=== PATIENT | female | born 1990 | race Caucasian/White ===

== ENCOUNTER 2017-01-07 14:20 | Emergency (ER) | payer OTHER ==
[2017-01-07 14:36] VITALS: RESP 18
[2017-01-07] MEDS ORDERED: NS 1,000 ML IV ONE (15:13)
--- NOTE | 2017-01-07 15:14 | EDPHY ---
H & P Stated Complaint: Bright red blood in stool, mid lower abdo pain. Time Seen by Provider: 01/07/17 15:00 HPI/ROS: CHIEF COMPLAINT: Blood and mucus in stool HISTORY OF PRESENT ILLNESS: The patient presents to the ED with 3 days of blood and mucus in her stool. The patient has a history of multiple GI issues including gastroparesis, internal/external hemorrhoids, ulcers and irritable bowel syndrome. The patient has been under the care of cushion filler in the past and has had a fairly significant workup. The patient reports that she is currently taking Zofran, ranitidine and Synthroid. The patient denies any hematemesis. The patient complains of generalized mild abdominal pain. The patient denies fever, cough or congestion. The patient denies associated dysuria. REVIEW OF SYSTEMS: A comprehensive 10 point review of systems is otherwise negative aside from elements mentioned in the history of present illness. Source: Patient Exam Limitations: No limitations - Personal History LMP (Females 10-55): Now Current Tetanus/Diphtheria Vaccine: Unsure Current Tetanus Diphtheria and Acellular Pertussis (TDAP): Unsure - Medical/Surgical History Hx Asthma: No Hx Chronic Respiratory Disease: No Hx Diabetes: No Hx Cardiac Disease: No Hx Renal Disease: No Hx Cirrhosis: No Hx Alcoholism: No Hx HIV/AIDS: No Other PMH: polyps, gastric ulcers, gastroparesis, choleycystectomy, constipation , IBS, hypothyroid, anemia-unknown eitolgy, fibromyalgia. - Social History Smoking Status: Former smoker - Physical Exam Exam: General Appearance: Alert, no distress Eyes: Pupils equal and round no pallor or injection ENT, Mouth: Mucous membranes moist Respiratory: There are no retractions, lungs are clear to auscultation Cardiovascular: Regular rate and rhythm Gastrointestinal: Minimal epigastric tenderness, no peritoneal signs, normal bowel sounds Neurological: A&O, normal motor function, normal sensory exam, normal cranial nerves Skin: Warm and dry, no rashes Musculoskeletal: Neck is supple nontender Extremities: symmetrical, full range of motion Constitutional: Initial Vital Signs Temperature (C) 36.9 C 01/07/17 14:32 Heart Rate 79 01/07/17 14:32 Respiratory Rate 18 01/07/17 14:32 Blood Pressure 134/88 H 01/07/17 14:32 O2 Sat (%) 97 01/07/17 14:32 O2 Delivery Mode Room Air Allergies/Adverse Reactions: promethazine [From Phenergan] Allergy (Intermediate, Verified 01/07/17 14:37) Other-Enter Comments Home Medications: Medication Instructions Recorded Nature Thyroid 01/07/17 Tizanidine HCl 01/07/17 Zofran 01/07/17 Medical Decision Making ED Course/Re-evaluation: The patient presents to the ED with scant mucoid and bloody bowel movements. Patient has a history of multiple chronic GI problems. I find the patient's abdominal examination to be entirely benign. The patient is scheduled to see a cushion filler this Friday in follow-up. I did review the patient's laboratory testing with her. At this point time I doubt she has an acute surgical abdomen which requires emergent imaging. Additionally the patient has no fever or white count. I do feel given her history of multiple GI illnesses that she can pursue additional follow up with Gastroenterology as scheduled this Friday. Differential Diagnosis: Differential diagnosis considered includes peptic ulcer disease, ulcerative colitis, inflammatory bowel disease, irritable bowel syndrome - Data Points Laboratory Results: Laboratory Results 01/07/17 15:40 01/07/17 15:40 01/07/17 01/07/17 01/07/17 15:40 15:40 15:40 WBC 9.31 10^3/uL 10^3/uL (3.80-9.50) RBC 4.65 10^6/uL 10^6/uL (4.18-5.33) Hgb 13.3 g/dL g/dL (12.6-16.3) Hct 39.4 % % (38.0-47.0) MCV 84.7 fL fL (81.5-99.8) MCH 28.6 pg pg (27.9-34.1) MCHC 33.8 g/dL g/dL (32.4-36.7) RDW 12.6 % % (11.5-15.2) Plt Count 380 10^3/uL 10^3/uL (150-400) MPV 8.5 fL L fL (8.7-11.7) Neut % (Auto) 78.4 % H % (39.3-74.2) Lymph % (Auto) 16.6 % % (15.0-45.0) [place] % (Auto) 4.3 % L % (4.5-13.0) Eos % (Auto) 0.0 % L % (0.6-7.6) Baso % (Auto) 0.5 % % (0.3-1.7) Nucleat RBC Rel Count 0.0 % % (0.0-0.2) Absolute Neuts (auto) 7.29 10^3/uL H 10^3/uL (1.70-6.50) Absolute Lymphs (auto) 1.55 10^3/uL 10^3/uL (1.00-3.00) Absolute Monos (auto) 0.40 10^3/uL 10^3/uL (0.30-0.80) Absolute Eos (auto) 0.00 10^3/uL L 10^3/uL (0.03-0.40) Absolute Basos (auto) 0.05 10^3/uL 10^3/uL (0.02-0.10) Absolute Nucleated RBC 0.00 10^3/uL 10^3/uL (0-0.01) Immature Gran % 0.2 % % (0.0-1.1) Immature Gran # 0.02 10^3/uL 10^3/uL (0.00-0.10) Sodium 137 mEq/L mEq/L (134-144) Potassium 3.9 mEq/L mEq/L (3.5-5.2) Chloride 105 mEq/L mEq/L (97-110) Carbon Dioxide 22 mEq/l mEq/l (22-31) Anion Gap 10 mEq/L mEq/L (8-16) BUN 12 mg/dL mg/dL (7-23) Creatinine 0.5 mg/dL L mg/dL (0.6-1.0) Estimated GFR > 60 Glucose 95 mg/dL mg/dL (70-100) Calcium 9.7 mg/dL mg/dL (8.5-10.4) Beta HCG, Qual NEGATIVE Medications Given: Discontinued Medications Sodium Chloride (Ns) 1,000 mls @ 0 mls/hr IV ONCE ONE PRN Reason: Wide Open Stop: 01/07/17 15:14 Last Admin: 01/07/17 15:30 Dose: 1,000 mls Departure - Departure Disposition: Home, Routine, Self-Care Clinical Impression: Hematochezia Condition: Good Instructions: Rectal Bleeding (ED) Additional Instructions: 1. Please follow up as scheduled with Gastroenterology of the [facility] on Friday. 2. Please return to the ED for heavy bleeding, severe pain, fever or other concerns.
[2017-01-07 15:49] LABS: % IMMATURE GRANULYOCYTES 0.2 % (0.0-1.1); ABSOLUTE IMMATURE GRANULOCYTES 0.02 10^3/uL (0.00-0.10); ADD DIFF? NO; ADD MORPH? NO; ADD SCAN? NO; ATYPICAL LYMPHOCYTE FLAG 0 (0-99); FRAGMENT RBC FLAG 0 (0-99); HEMATOCRIT 39.4 % (38.0-47.0); HEMOGLOBIN 13.3 g/dL (12.6-16.3); LEFT SHIFT FLG 0 (0-99); LIPEMIA HEMOLYSIS FLAG 90 (0-99); MEAN CELL HEMOGLOBIN 28.6 pg (27.9-34.1); MEAN CELL HEMOGLOBIN CONCENTR. 33.8 g/dL (32.4-36.7); MEAN CELL VOLUME 84.7 fL (81.5-99.8); MEAN PLATELET VOLUME 8.5 fL (8.7-11.7); PLATELET CLUMPS FLAG 0 (0-99); PLATELET COUNT 380 10^3/uL (150-400); RED BLOOD CELL COUNT 4.65 10^6/uL (4.18-5.33); RED CELL DISTRIBUTION WIDTH 12.6 % (11.5-15.2)
[2017-01-07 16:00] LABS: ANION GAP 10 mEq/L (8-16); CALCIUM 9.7 mg/dL (8.5-10.4); CARBON DIOXIDE 22 mEq/l (22-31); CHLORIDE 105 mEq/L (97-110); CREATININE 0.5 mg/dL (0.6-1.0); GLOMERULAR FILTRATION RATE > 60; GLUCOSE 95 mg/dL (70-100); POTASSIUM 3.9 mEq/L (3.5-5.2); SODIUM 137 mEq/L (134-144)
[2017-01-07 16:57] VITALS: BP 116/86; PULSE 63; TEMP 98.6; O2SAT 96
== END 2017-01-07 16:58 | disposition home or self-care (01) ==
DX: K92.1 Melena (principal); Z87.891 Personal history of nicotine dependence; Z90.49 Acquired absence of other specified parts of digestive tract

== ENCOUNTER 2017-10-21 19:46 | Emergency (ER) | payer OTHER ==
[2017-10-21 19:51] VITALS: RESP 18; TEMP 99.7
[2017-10-21] MEDS ORDERED: ONDANSETRON 4 MG/2 ML VIAL IVP ONE ×2 (20:44→21:50)
[2017-10-21] MEDS ORDERED: NS 1,000 ML IV ONE ×2 (20:44→21:50)
[2017-10-21 21:51] LABS: PLATELET COUNT 372 10^3/uL (150-400)
[2017-10-21] MEDS ORDERED: IOPAMIDOL (ISOVUE-300) 100 ML BTL ONE (22:04)
[2017-10-21 22:23] VITALS: O2SAT 97
[2017-10-21] MEDS ORDERED: METOCLOPRAMIDE 10 MG/2 ML VIAL IVP ONE (23:11)
--- NOTE | 2017-10-21 23:32 | EDPHY ---
H & P Stated Complaint: left side cramping abd pain with V/D HPI/ROS: Chief complaint: Abdominal pain with diarrhea, nausea and vomiting History of present illness: This is a 26 year old female who presents to the emergency department for evaluation of abdominal pain with associated diarrhea as well as nausea and vomiting. She reports this morning she developed abdominal pain. She describes cramping in the left lower aspect of the abdomen. She has subsequently developed diarrhea. No report of bright red blood or melena. She subsequently developed nausea and vomiting. She has been unable to tolerate oral intake. Symptoms have been persistent. She does report multiple sick contacts with the same symptoms in her office. No report of foreign travel or antibiotic use. Review of systems: A 10 point review of systems was obtained and other than described above was negative - Personal History LMP (Females 10-55): Over 28 Days Ago Current Tetanus/Diphtheria Vaccine: Yes Current Tetanus Diphtheria and Acellular Pertussis (TDAP): Yes - Medical/Surgical History Hx Asthma: No Hx Chronic Respiratory Disease: No Hx Diabetes: No Hx Cardiac Disease: No Hx Renal Disease: No Hx Cirrhosis: No Hx Alcoholism: No Hx HIV/AIDS: No Other PMH: polyps, gastric ulcers, gastroparesis, choleycystectomy, constipation , IBS, hypothyroid, anemia-unknown eitolgy, fibromyalgia. - Social History Smoking Status: Current some day smoker - Physical Exam Exam: General Appearance: Alert, nontoxic. Eyes: Pupils equal and round no pallor or injection. ENT, Mouth: Mucous membranes moist. Respiratory: There are no retractions, lungs are clear to auscultation. Cardiovascular: Regular rate and rhythm. Gastrointestinal: Bowel sounds normal. Abdomen is soft and nondistended. Mild discomfort on palpation of the left lower quadrant. No peritoneal signs. Neurological: Alert and oriented x4. Strength and sensation intact and symmetrical. Skin: Warm and dry, no rashes. Musculoskeletal: Neck is supple non tender. Extremities are symmetrical, full range of motion. Psychiatric: Patient is oriented X 3, there is no agitation. Constitutional: Initial Vital Signs Temperature (C) 37.6 C 10/21/17 19:48 Heart Rate 125 H 10/21/17 19:48 Respiratory Rate 18 10/21/17 19:48 Blood Pressure 116/76 10/21/17 19:48 O2 Sat (%) 95 10/21/17 19:48 O2 Delivery Mode Room Air Allergies/Adverse Reactions: promethazine [From Phenergan] Allergy (Intermediate, Verified 10/21/17 19:51) Other-Enter Comments Home Medications: Medication Instructions Recorded Nature Thyroid 01/07/17 Ondansetron Odt [Zofran Odt 4 mg 4 mg PO Q4 #6 tab 10/21/17 (*)] Medical Decision Making - Diagnostics Imaging: Discussed imaging studies w/ freight caller Radiologist ED Course/Re-evaluation: Patient is seen under the supervision of my secondary supervising physician Dr. Robles Mcclelland. Patient presents to the emergency department for abdominal pain with nausea, vomiting and diarrhea. She is nontoxic. Vital signs are stable. Blood studies largely unremarkable. CT scan largely unremarkable. She has been symptomatically treated and reports improvement in symptoms. Tolerating oral challenges. She is comfortable being discharged home. Home care is discussed. Return precautions are given. Patient voiced understanding and agreement with plan. Differential Diagnosis: Included but not limited to gastroenteritis, gastritis, biliary tract disease, pancreatitis, colitis, diverticulitis - Data Points Laboratory Results: Laboratory Results 10/21/17 20:43 10/21/17 20:43 Medications Given: Discontinued Medications Sodium Chloride (Ns) 1,000 mls @ 0 mls/hr IV ONCE ONE PRN Reason: Wide Open Stop: 10/21/17 20:45 Last Admin: 10/21/17 20:47 Dose: 1,000 mls Sodium Chloride (Ns) 1,000 mls @ 0 mls/hr IV ONCE ONE PRN Reason: Wide Open Stop: 10/21/17 21:51 Last Admin: 10/21/17 21:53 Dose: 1,000 mls Ketorolac Tromethamine (Toradol) 15 mg IVP EDNOW ONE Stop: 10/21/17 23:44 Last Admin: 10/21/17 23:52 Dose: 15 mg Metoclopramide HCl (Reglan Injection) 10 mg IVP EDNOW ONE Stop: 10/21/17 23:12 Last Admin: 10/21/17 23:40 Dose: 10 mg Ondansetron HCl (Zofran) 4 mg IVP EDNOW ONE Stop: 10/21/17 20:45 Last Admin: 10/21/17 20:47 Dose: 4 mg Ondansetron HCl (Zofran) 4 mg IVP EDNOW ONE Stop: 10/21/17 21:51 Last Admin: 10/21/17 21:53 Dose: 4 mg Ondansetron HCl (Zofran Odt 4 Mg Prepack#2) 1 btl TAKEHOME EDNOW ONE Stop: 10/21/17 23:34 Last Admin: 10/21/17 23:52 Dose: 1 btl Departure - Departure Disposition: Home, Routine, Self-Care Clinical Impression: Vomiting and diarrhea Abdominal pain Qualifiers: Abdominal location: left lower quadrant Qualified Code(s): R10.32 - Left lower quadrant pain Condition: Good Instructions: Acute Nausea and Vomiting (ED), Acute Diarrhea (ED), Acute Abdominal Pain (ED) Additional Instructions: Follow-up with your primary care doctor in 1-2 days for recheck If symptoms worsen or new symptoms develop return to the emergency room for recheck Referrals: NONE *PRIMARY CARE P,. [Primary Care Provider] - As per Instructions Mesfin Garland DO [Doctor of Osteopathy] - As per Instructions [facility],. [Clinic] - As per Instructions Prescriptions: Ondansetron Odt [Zofran Odt 4 mg (*)] 4 mg PO Q4 #6 tab
[2017-10-21] MEDS ORDERED: ONDANSETRON 4MG PREPACK#2 BTL TAKEHOME ONE (23:33)
[2017-10-21] MEDS ORDERED: KETOROLAC 15 MG/1 ML SDV IVP ONE (23:43)
[2017-10-22 00:40] VITALS: BP 119/72; PULSE 87
== END 2017-10-22 00:40 | disposition home or self-care (01) ==
DX: R10.32 Left lower quadrant pain (principal); R11.10 Vomiting, unspecified; R19.7 Diarrhea, unspecified; F17.200 Nicotine dependence, unspecified, uncomplicated; Z90.49 Acquired absence of other specified parts of digestive tract
CPT/HCPCS: 96374; J1885; J2405; Q9967

== ENCOUNTER → 2017-12-21 | Outpatient (CLI) | payer OTHER | LOC: GIMAGING 18:42 | PROVIDERS: ATTEND Nurse Practitioner Family | DX: M79.675 Pain in left toe(s) (principal) | CPT/HCPCS: 73630-PO ==

== ENCOUNTER 2019-01-01 15:42 | Emergency (ER) | payer OTHER ==
--- NOTE | 2019-01-01 15:56 | EDPHY ---
H & P Stated Complaint: nontraumatic left hip pain x 5 weeks, sent by PCP , seen at [facility] in [place]. Time Seen by Provider: 01/01/19 15:46 - Personal History LMP (Females 10-55): 8-14 Days Ago Current Tetanus Diphtheria and Acellular Pertussis (TDAP): Yes - Medical/Surgical History Hx Asthma: No Hx Chronic Respiratory Disease: No Hx Diabetes: No Hx Cardiac Disease: No Hx Renal Disease: No Hx Cirrhosis: No Hx Alcoholism: No Hx HIV/AIDS: No Other PMH: polyps, gastric ulcers, gastroparesis, choleycystectomy, constipation , IBS, hypothyroid, anemia-unknown eitolgy, fibromyalgia. - Social History Smoking Status: Current some day smoker Constitutional: Initial Vital Signs Temperature (C) 37.1 C 01/01/19 15:46 Heart Rate 84 01/01/19 15:46 Respiratory Rate 16 01/01/19 15:46 Blood Pressure 117/68 01/01/19 15:46 O2 Sat (%) 92 01/01/19 15:46 O2 Delivery Mode Room Air Allergies/Adverse Reactions: promethazine [From Phenergan] Allergy (Intermediate, Verified 10/21/17 19:51) Other-Enter Comments Home Medications: Medication Instructions Recorded Nature Thyroid 01/07/17 Ondansetron Odt [Zofran Odt 4 mg 4 mg PO Q4 #6 tab 10/21/17 (*)] Ibuprofen [Motrin] 800 mg PO Q8 #20 tab 01/01/19 Naproxen 01/01/19 oxyCODONE IR [Oxycodone Ir (*)] 5 - 10 mg PO Q6 PRN #30 tab 01/01/19 Medical Decision Making - Diagnostics Imaging Results: Imaging Impressions Abdomen Ultrasound 01/01/19 16:02 Impression: No hernia identified. Findings discussed with alda Gill for Marcus Burns MD 01/01/2019 at 17: 12. Abdomen CT 01/01/19 17:15 Impression: 1. Abnormal enlargement and septation of the right ovary. Recommend ultrasound evaluation for further characterization as clinically appropriate. 2. Otherwise negative CT examination of the abdomen and pelvis. No etiology for left flank or hip pain identified. Results called to Dr. Burns at 5:55 PM. Lower Extremity MRI 01/01/19 17:53 Impression: 1. Unremarkable MRI examination of left hip and pelvis. Results called to Dr. Burns at 8:30 PM. Lumbar Spine MRI 01/01/19 18:03 Impression: 1. Normal MRI examination of the lumbar spine without contrast. No evidence of disk herniation or neural impingement.. Imaging: Discussed imaging studies w/ call or contact centre team leader Radiologist, I viewed and interpreted images myself ED Course/Re-evaluation: CHIEF COMPLAINT: Left groin/hip pain HISTORY OF PRESENT ILLNESS: The patient is a 28 y/o female with a history of fibromyalgia, IBS, and gastroparesis complaining of left groin/hip pain. The patient developed this pain while on vacation in [place], and presented to the emergency department. She had a pelvic US performed without any significant findings. After returning home from [place], her symptoms worsened and she saw her PCP, Dr. Scott, who sent her to this emergency department. She states "I feel like a bus hit me and I feel worn out". She reports that lifting her left leg or doing stairs exacerbates her symptoms. In addition to her left groin pain she has low back pain, is nauseated and dizzy, and has specks in her vision. She reports the low back pain occurred prior to the onset of her groin pain. She denies any traumatic event. No fever, body aches, lightheadedness, chest pain, heart palpitations, shortness of breath, cough, abdominal pain, urinary or bowel complaints, numbness. REVIEW OF SYSTEMS: A comprehensive 10 system review of systems is otherwise negative aside from elements mentioned in the history of present illness and medical decision making. PHYSICAL EXAM: HR, BP, O2 Sat, RR. Temp noted General Appearance: Alert, well hydrated, appropriate, and non-toxic appearing. Head: Atraumatic without scalp tenderness or obvious injury Eyes: Pupils equal, round, reactive to light and accommodation, EOMI, no trauma , no injection. Ears: Clear bilaterally, no perforation, normal landmarks Nose: Atraumatic, no rhinorrhea, clear. Throat: There is no erythema or exudates, no lesions, normal tonsils, mucus membranes moist. Neck: Supple, 2+ carotid upstroke, nontender, no lymphadenopathy. Respiratory: No retractions, no distress, no wheezes, and no accessory muscle use. Lungs are clear to auscultation bilaterally. Cardiovascular: Regular rate and rhythm, no murmurs, rubs, or gallops. Bilateral carotid, radial, dorsalis pedis, and posterior tibial pulses intact. Good capillary refill all extremities. Gastrointestinal: Abdomen is soft, nontender, non-distended, no masses, no rebound, no guarding, no peritoneal signs. Genitourinary: Left inguinal/femoral canal tenderness to palpation. Musculoskeletal: Normal active ROM of all extremities, atraumatic. Neurological: Alert, appropriate, and interactive. The patient has normal DTRs and non-focal cranial nerves, motor, sensory, and cerebellar exam. Skin: No rashes, good turgor, no nodules on palpation. Past medical history: Gastric ulcers, gastroparesis, constipation, IBS, hypothyroid, anemia-unknown eitolgy, fibromyalgia. Past surgical history: Cholecystectomy Family history: Social history: at bedside, lives in [place], employed DIAGNOSTICS/PROCEDURES/CRITICAL CARE TIME: Left inguinal canal US: No hernia or acute findings. Abdominopelvic CT: No acute findings. Abnormal right ovary which will need follow up. Left hip MRI: No acute findings. Lumbar spine MRI: No acute findings. DIFFERENTIAL DIAGNOSIS: The differential diagnosis for the patient's abdominal pain included but was not limited to ovarian cyst, pelvic inflammatory disease, ovarian torsion, urinary tract infection, ectopic , cholecystitis, and appendicitis. MEDICAL DECISION MAKING: The patient is a 28 y/o female with a history of fibromyalgia, IBS, and gastroparesis complaining of left groin/hip pain. She had a pelvic US performed without any significant findings and saw her PCP, Dr. Scott, who sent her to this emergency department. She states "I feel like a bus hit me and I feel worn out". Lifting her left leg or doing stairs exacerbates her symptoms. On exam she has left inguinal/femoral canal tenderness to palpation consistent with a hernia. I do not suspect that this patient has an intrinsic hip. Inguinal US and labs ordered. 1713: I spoke with the radiologist regarding patient's US. There is no US or acute findings visualized. Abdominopelvic CT ordered to further investigate. 1729: Reassessed patient and discussed imaging and laboratory findings. She is still having pain, 2 tab PO Vicodin administered. I have discussed plan for abdominopelvic CT, which she is comfortable with. 1753: I spoke with Dr. Cai, radiologist, who reports there are not acute findings on the patient's abdominopelvic CT. The patient does have an abnormal right ovary which will need follow up. Patient will need an MRI of her left hip and lumbar spine without contrast as she is unable to bear weight on her left hip. I ordered the lumbar spine and hip to rule out radiculopathy causing left hip pain verses intrinsic hip problem. 1800: Reassessed patient and discussed CT findings. I have also discussed plan for MRI, which she is comfortable with. 2024: I spoke with the radiologist, there are no acute findings on the lumbar spine MRI; left hip MRI still pending. 2031: I spoke with Dr. Cai, radiologist, there are no acute findings on the left hip MRI. 2039: Reassessed patient and discussed imaging findings. I have advised her to follow up with her PCP. I have prescribed her OxyIR and Motrin for her pain. Return precautions provided; patient is comfortable with this plan. 2129: Patient's UA is unremarkable, she is safe to be discharged home. - Data Points Laboratory Results: 01/01/19 01/01/19 01/01/19 21:14 16:50 16:48 POC Hgb 13.9 gm/dL gm/dL (12.6-16.3) POC Hct 41 % % (38-47) POC Sodium 142 mEq/L mEq/L (135-145) POC Potassium 3.7 mEq/L mEq/L (3.3-5.0) POC Chloride 106 mEq/L mEq/L (97-110) POC Total CO2 21 mEq/L L mEq/L (22-31) POC BUN 13 mg/dL mg/dL (7-23) POC Creatinine 0.7 mg/dL mg/dL (0.6-1.0) POC Glucose 88 mg/dL mg/dL (70-100) Beta HCG, Qual NEGATIVE Urine Color YELLOW Urine Appearance CLEAR Urine pH 5.0 (5.0-7.5) Ur Specific [place] > 1.060 H (1.002-1.030) Urine Protein NEGATIVE (NEGATIVE) Urine Ketones NEGATIVE (NEGATIVE) Urine Blood NEGATIVE (NEGATIVE) Urine Nitrate NEGATIVE (NEGATIVE) Urine Bilirubin NEGATIVE (NEGATIVE) Urine Urobilinogen NEGATIVE EU EU (0.2-1.0) Ur Leukocyte Esterase NEGATIVE (NEGATIVE) Urine RBC 1-3 /hpf /hpf (0-3) Urine WBC 1-3 /hpf /hpf (0-3) Ur Epithelial Cells TRACE /lpf /lpf (NONE-1+) Urine Mucus TRACE /lpf /lpf (NONE-1+) Urine Glucose NEGATIVE (NEGATIVE) Medications Given: Discontinued Medications Hydrocodone Bitart/Acetaminophen ([place] 10/325) 1 tab PO EDNOW ONE Stop: 01/01/19 17:06 Last Admin: 01/01/19 17:10 Dose: Not Given Hydrocodone Bitart/Acetaminophen ([place] 5/325) 2 tab PO EDNOW ONE Stop: 01/01/19 17:11 Last Admin: 01/01/19 17:12 Dose: 2 tab Oxycodone/Acetaminophen (Percocet 5/325mg Prepack#4) 1 btl TAKEHOME EDNOW ONE Stop: 01/01/19 20:54 Last Admin: 01/01/19 21:10 Dose: 1 btl Point of Care Test Results: Chemistry 01/01/19 16:50 POC Sodium 142 mEq/L mEq/L (135-145) POC Potassium 3.7 mEq/L mEq/L (3.3-5.0) POC Chloride 106 mEq/L mEq/L (97-110) POC Total CO2 21 mEq/L L mEq/L (22-31) POC BUN 13 mg/dL mg/dL (7-23) POC Creatinine 0.7 mg/dL mg/dL (0.6-1.0) POC Glucose 88 mg/dL mg/dL (70-100) ISTAT H&H 01/01/19 16:50 POC Hgb 13.9 gm/dL gm/dL (12.6-16.3) POC Hct 41 % % (38-47) Departure - Departure Disposition: Home, Routine, Self-Care Clinical Impression: Deep inguinal pain, left, Left hip pain Condition: Good Instructions: Oxycodone/Acetaminophen (By mouth), Hip Pain (ED) Additional Instructions: 1. Followup with your PCP within one week. 2. Return to the emergency apartment for fever, severe pain, inability to urinate or other concerns. 3. You have an abnormal right ovary which will need follow up. 4. Take OxyIR and Motrin as prescribed. Referrals: Elier Scott MD [Primary Care Provider] - As per Instructions Prescriptions: Ibuprofen [Motrin] 800 mg PO Q8 #20 tab oxyCODONE IR [Oxycodone Ir (*)] 5 - 10 mg PO Q6 PRN #30 tab PRN Reason: Pain, Severe Report Scribed for: Marcus Burns Report Scribed by: Bridget Herndon Date of Report: 01/01/19 Time of Report: 15:57
[2019-01-01] MEDS ORDERED: HYDROCODONE/APAP 10/325 TAB PO ONE (17:05)
[2019-01-01] MEDS ORDERED: HYDROCODONE/APAP 5/325 TAB ONE (17:09)
[2019-01-01] MEDS ORDERED: HYDROCODONE/APAP 5/325 TAB PO ONE (17:10)
[2019-01-01] MEDS ORDERED: IOPAMIDOL (ISOVUE-300) 100 ML BTL ONE (17:22)
[2019-01-01] MEDS ORDERED: OXYCODONE/APAP 5/325MG PREPACK#4 BTL TAKEHOME ONE (20:53)
[2019-01-01 21:39] VITALS: BP 120/70
== END 2019-01-01 21:39 | disposition home or self-care (01) ==
DX: M25.552 Pain in left hip (principal); M54.5 Low back pain; R11.0 Nausea
CPT/HCPCS: 82435-PO; 82565-PO; 82947-PO; 84132-PO; 84295-PO; 84520-PO; 85014-ER; Q9967

== ENCOUNTER 2019-01-26 14:29 | Emergency (ER) | payer BC, OTHER ==
[2019-01-26] MEDS ORDERED: ONDANSETRON 4 MG/2 ML VIAL IVP ONE (15:03)
--- NOTE | 2019-01-26 15:06 | EDPHY ---
H & P Stated Complaint: n/v/d, "extreme abdominal pain" points to general abd area Time Seen by Provider: 01/26/19 14:55 HPI/ROS: CHIEF COMPLAINT: Abdominal pain, vomiting HISTORY OF PRESENT ILLNESS: 28-year-old female s/p cholecystectomy presents with abdominal pain and vomiting. Onset of generalized abdominal pain this morning. The pain is moderate to severe and associated with multiple episodes of vomiting. Unable to tolerate oral fluids. The pain is alleviated temporarily after vomiting, then recurs. No fever and no diarrhea. Ongoing dysuria for 8 weeks, urinalysis reportedly negative. Taking a lot of ibuprofen an aspirin for other symptoms, concern for gastritis/PUD. History of PUD in the past, previously on Prilosec. REVIEW OF SYSTEMS: complete 10 point ROS reviewed and is negative except for the noted elements in the HPI Source: Patient - Personal History LMP (Females 10-55): 8-14 Days Ago Current Tetanus Diphtheria and Acellular Pertussis (TDAP): Yes - Medical/Surgical History Hx Asthma: No Hx Chronic Respiratory Disease: No Hx Diabetes: No Hx Cardiac Disease: No Hx Renal Disease: No Hx Cirrhosis: No Hx Alcoholism: No Hx HIV/AIDS: No Hx Splenectomy or Spleen Trauma: No Other PMH: polyps, gastric ulcers, gastroparesis, choleycystectomy, constipation , IBS, hypothyroid, anemia-unknown eitolgy, fibromyalgia. - Family History Significant Family History: No pertinent family hx - Social History Smoking Status: Current some day smoker Alcohol Use: Sober Drug Use: Marijuana - Physical Exam Exam: General Appearance: Alert, pleasant Eyes: Pupils equal and round, no conjunctival pallor ENT, Mouth: Mucous membranes moist Neck: Normal inspection Respiratory: Lungs are clear to auscultation Cardiovascular: Regular rate and rhythm Gastrointestinal: Abdomen is soft, epigastric tenderness Neurological: A&O, nonfocal, normal gait Skin: Warm and dry Extremities: Normal inspection Psychiatric: Mood and affect normal Constitutional: Initial Vital Signs Temperature (C) 36.9 C 01/26/19 14:34 Heart Rate 82 01/26/19 14:34 Respiratory Rate 16 01/26/19 14:34 Blood Pressure 138/115 H 01/26/19 14:34 O2 Sat (%) 100 01/26/19 14:34 O2 Delivery Mode Room Air Allergies/Adverse Reactions: promethazine [From Phenergan] Allergy (Intermediate, Verified 10/21/17 19:51) Other-Enter Comments Home Medications: Medication Instructions Recorded Nature Thyroid 01/07/17 Ondansetron Odt [Zofran Odt 4 mg 4 mg PO Q4 #6 tab 10/21/17 (*)] Ibuprofen [Motrin] 800 mg PO Q8 #20 tab 01/01/19 Naproxen 01/01/19 oxyCODONE IR [Oxycodone Ir (*)] 5 - 10 mg PO Q6 PRN #30 tab 01/01/19 Cephalexin [Keflex (*)] 500 mg PO BID #10 cap 01/26/19 Ondansetron Odt [Zofran Odt 4 mg 4 mg PO Q4 PRN #6 tab 01/26/19 (*)] Medical Decision Making - Diagnostics Imaging Results: Imaging Impressions Abdomen CT 01/26/19 16:23 Impression: There is no CT explanation for the patient's left upper quadrant pain. If there is further concern regarding evaluation of the stomach, either an upper GI series or directed endoscopy could be considered. Findings were discussed with GARRY MALDONADO MD at 17:19, on 01/26/2019. Imaging: Discussed imaging studies w/ clergy member Radiologist ED Course/Re-evaluation: Assessment: Abdominal pain and vomiting epigastric tenderness on exam. Consistent with peptic ulcer disease versus pancreatitis. IV normal saline 1 L , morphine and Zofran IV given. Will reassess. 16 20: Pain is worse, patient appears quite uncomfortable. Morphine 6 mg IV given. Exam reveals left upper quadrant tenderness, no peritoneal signs. CT scan of the abdomen pelvis ordered. Labs reviewed with the patient, urinalysis consistent with UTI, urine culture sent. Haldol 2.5 mg IV given. 1745: Feels much better, pain and nausea have resolved. Cyclic vomiting syndrome possibility vs PUD discussed with the patient. She is a daily marijuana user. Will give trial of ice chips, then reassess. Able to tolerate oral fluids well. Will discharge home. She will resume taking Prilosec and will follow up with GI. Differential Diagnosis: Differential diagnosis includes though it is not limited to appendicitis, cholecystitis, diverticulitis, pyelonephritis, bowel perforation, small bowel obstruction. - Data Points Laboratory Results: Laboratory Results 01/26/19 15:00 01/26/19 15:42 01/26/19 01/26/19 01/26/19 15:50 15:42 15:42 WBC RBC Hgb Hct MCV MCH MCHC RDW Plt Count MPV Neut % (Auto) Lymph % (Auto) [place] % (Auto) Eos % (Auto) Baso % (Auto) Nucleat RBC Rel Count Absolute Neuts (auto) Absolute Lymphs (auto) Absolute Monos (auto) Absolute Eos (auto) Absolute Basos (auto) Absolute Nucleated RBC Immature Gran % Immature Gran # Sodium 137 mEq/L mEq/L (135-145) Potassium 3.7 mEq/L mEq/L (3.5-5.2) Chloride 107 mEq/L mEq/L (97-110) Carbon Dioxide 19 mEq/l L mEq/l (22-31) Anion Gap 11 mEq/L mEq/L (6-14) BUN 7 mg/dL mg/dL (7-23) Creatinine 0.7 mg/dL mg/dL (0.6-1.0) Estimated GFR > 60 Glucose 107 mg/dL H mg/dL (70-100) Calcium 9.2 mg/dL mg/dL (8.5-10.4) Total Bilirubin 0.6 mg/dL mg/dL (0.1-1.4) Conjugated Bilirubin 0.3 mg/dL mg/dL (0.0-0.5) Unconjugated Bilirubin 0.3 mg/dL mg/dL (0.0-1.1) AST 131 IU/L H IU/L (14-46) ALT 82 IU/L H IU/L (9-52) Alkaline Phosphatase 66 IU/L IU/L (38-126) Total Protein 6.9 g/dL g/dL (6.3-8.2) Albumin 4.2 g/dL g/dL (3.5-5.0) Lipase 54 IU/L IU/L (23-300) Beta HCG, Qual NEGATIVE Urine Color YELLOW Urine Appearance HAZY Urine pH 5.0 (5.0-7.5) Ur Specific [place] 1.009 (1.002-1.030) Urine Protein NEGATIVE (NEGATIVE) Urine Ketones TRACE H (NEGATIVE) Urine Blood NEGATIVE (NEGATIVE) Urine Nitrate NEGATIVE (NEGATIVE) Urine Bilirubin NEGATIVE (NEGATIVE) Urine Urobilinogen NEGATIVE EU EU (0.2-1.0) Ur Leukocyte Esterase TRACE H (NEGATIVE) Urine RBC 1-3 /hpf /hpf (0-3) Urine WBC 3-5 /hpf H /hpf (0-3) Ur Epithelial Cells TRACE /lpf /lpf (NONE-1+) Urine Bacteria 3+ /hpf H /hpf (NONE SEEN) Urine Glucose NEGATIVE (NEGATIVE) 01/26/19 01/26/19 01/26/19 15:00 15:00 15:00 WBC 13.54 10^3/uL H 10^3/uL (3.80-9.50) RBC 5.06 10^6/uL 10^6/uL (4.18-5.33) Hgb 14.4 g/dL g/dL (12.6-16.3) Hct 44.0 % % (38.0-47.0) MCV 87.0 fL fL (81.5-99.8) MCH 28.5 pg pg (27.9-34.1) MCHC 32.7 g/dL g/dL (32.4-36.7) RDW 13.1 % % (11.5-15.2) Plt Count 346 10^3/uL 10^3/uL (150-400) MPV 8.5 fL L fL (8.7-11.7) Neut % (Auto) 88.0 % H % (39.3-74.2) Lymph % (Auto) 6.7 % L % (15.0-45.0) [place] % (Auto) 4.1 % L % (4.5-13.0) Eos % (Auto) 0.3 % L % (0.6-7.6) Baso % (Auto) 0.5 % % (0.3-1.7) Nucleat RBC Rel Count 0.0 % % (0.0-0.2) Absolute Neuts (auto) 11.91 10^3/uL H 10^3/uL (1.70-6.50) Absolute Lymphs (auto) 0.91 10^3/uL L 10^3/uL (1.00-3.00) Absolute Monos (auto) 0.56 10^3/uL 10^3/uL (0.30-0.80) Absolute Eos (auto) 0.04 10^3/uL 10^3/uL (0.03-0.40) Absolute Basos (auto) 0.07 10^3/uL 10^3/uL (0.02-0.10) Absolute Nucleated RBC 0.00 10^3/uL 10^3/uL (0-0.01) Immature Gran % 0.4 % % (0.0-1.1) Immature Gran # 0.05 10^3/uL 10^3/uL (0.00-0.10) Sodium REJ Potassium Not Reported Chloride Not Reported Carbon Dioxide Not Reported Anion Gap Not Reported BUN Not Reported Creatinine Not Reported Estimated GFR Not Reported Glucose Not Reported Calcium Not Reported Total Bilirubin Not Reported Conjugated Bilirubin Not Reported Unconjugated Bilirubin Not Reported AST Not Reported ALT Not Reported Alkaline Phosphatase Not Reported Total Protein Not Reported Albumin Not Reported Lipase REJ Beta HCG, Qual REJ Urine Color Urine Appearance Urine pH Ur Specific [place] Urine Protein Urine Ketones Urine Blood Urine Nitrate Urine Bilirubin Urine Urobilinogen Ur Leukocyte Esterase Urine RBC Urine WBC Ur Epithelial Cells Urine Bacteria Urine Glucose Medications Given: Discontinued Medications Haloperidol Lactate (Haldol Injection) 2.5 mg IVP EDNOW ONE Stop: 01/26/19 16:45 Last Admin: 01/26/19 17:29 Dose: 2.5 mg Morphine Sulfate (Morphine) 4 mg IVP EDNOW ONE Stop: 01/26/19 15:04 Last Admin: 01/26/19 15:15 Dose: 4 mg Morphine Sulfate (Morphine) 6 mg IVP Q1H PRN PRN Reason: Pain, Severe Unable to Take PO Last Admin: 01/26/19 16:40 Dose: 6 mg Ondansetron HCl (Zofran) 4 mg IVP EDNOW ONE Stop: 01/26/19 15:04 Last Admin: 01/26/19 15:16 Dose: 4 mg Pantoprazole Sodium (Protonix) 40 mg IVP EDNOW ONE Stop: 01/26/19 16:20 Last Admin: 01/26/19 16:41 Dose: 40 mg Departure - Departure Disposition: Home, Routine, Self-Care Clinical Impression: Abdominal pain, Vomiting, Urinary tract infection Condition: Good Instructions: Cephalexin (By mouth), Ondansetron (By mouth), Urinary Tract Infection in Women (ED), Acute Nausea and Vomiting (ED), Acute Abdominal Pain ( ED) Additional Instructions: 1. Clear liquids for 24 hours. 2. Advance diet as tolerated. I suggest the BRAT diet to start: bananas, rice, applesauce and toast. 3. Return for worsening symptoms, persistent vomiting, abdominal pain, any concerns. 4. Follow-up with your sash maker. 5. Take Prilosec over the counter. Referrals: Catalina Castro MD [Medical Doctor] - 2-3 days, call for appt. Prescriptions: Cephalexin [Keflex (*)] 500 mg PO BID #10 cap Ondansetron Odt [Zofran Odt 4 mg (*)] 4 mg PO Q4 PRN #6 tab PRN Reason: Nausea
[2019-01-26 15:14] LABS: PLATELET COUNT 346 10^3/uL (150-400)
[2019-01-26] MEDS ORDERED: ONDANSETRON 4 MG/2 ML VIAL ONE (16:05)
[2019-01-26] MEDS ORDERED: PANTOPRAZOLE SODIUM 40 MG VIAL IVP ONE (16:19)
[2019-01-26] MEDS ORDERED: IOPAMIDOL (ISOVUE-300) 100 ML BTL ONE (16:34)
[2019-01-26] MEDS ORDERED: HALOPERIDOL LACT 5 MG/ML INJ IVP ONE (16:44)
[2019-01-26 18:31] VITALS: BP 122/78
== END 2019-01-26 18:29 | disposition home or self-care (01) ==
DX: R10.9 Unspecified abdominal pain (principal); R11.10 Vomiting, unspecified; N39.0 Urinary tract infection, site not specified
CPT/HCPCS: 96374; J1630; J2270; J2405; Q9967

== ENCOUNTER → 2019-01-26 | Outpatient (CLI) | payer OTHER ==
[~2019-01-26] MED LIST: IOPAMIDOL (ISOVUE-300) 100 ML BTL ONE
== END ==
LOC: FIMAGING 13:39
PROVIDERS: ATTEND Physician Assistant Medical
DX: R20.2 Paresthesia of skin (principal); R29.898 Other symptoms and signs involving the musculoskeletal system
CPT/HCPCS: Q9967